=== PATIENT | female | born 1990 | race Caucasian/White ===

== ENCOUNTER 2019-10-07 22:04 | Emergency (ER) | payer SELFPAY ==
[~2019-10-07] VITALS: Ht 160 cm; Wt 50.8 kg
[2019-10-07] MEDS ORDERED: KETOROLAC 30 MG/1 ML IM ONE (23:00)
[2019-10-07 23:13] LABS: BASOPHILS % (AUTO) 0 % (0-1); EOSINOPHILS # (AUTO) 0.11 x10^3/uL (0-0.4); EOSINOPHILS % (AUTO) 1 % (1-7); LYMPHOCYTES # (AUTO) 1.28 x10^3/uL (1-3.4); LYMPHOCYTES % (AUTO) 14 % (22-44); MD NO; MEAN CORPUSCULAR HEMOGLOBIN 30.5 pg (27.0-34.8); MEAN CORPUSCULAR HGB CONC 33.2 g/dL (32.4-35.8); MEAN CORPUSCULAR VOLUME 91.9 fL (80-100); MONOCYTES # (AUTO) 0.05 x10^3/uL (0.2-0.8); MONOCYTES % (AUTO) 1 % (2-9); NEUTROPHILS # (AUTO) 7.62 x10^3/uL (1.8-6.8); NEUTROPHILS % (AUTO) 84 % (42-75); PLATELET COUNT 259 x10^3/uL (130-400); RED BLOOD COUNT 4.44 x10^6/uL (3.82-5.3); RED CELL DISTRIBUTION WIDTH 12.5 % (9.6-15.2)
[2019-10-07] MEDS ORDERED: KETOROLAC 30 MG/1 ML ONE (23:13)
[2019-10-07 23:16] LABS: ANION GAP 4 mmol/L (5-15); CALCIUM 8.9 mg/dL (8.5-10.1); CHLORIDE 114 mmol/L (98-107); CREATININE 0.77 mg/dL (0.55-1.02)
[2019-10-08 00:05] LABS: MICROSCOPIC INDICATED
[2019-10-08 00:26] LABS: CLUE CELLS NONE SEEN (NONE SEEN); WET PREP WBCS FEW (FEW)
[2019-10-08] MEDS ORDERED: CEFTRIAXONE 250 MG ONE (00:48)
[2019-10-08] MEDS ORDERED: AZITHROMYCIN 250 MG TABLET ONE (00:49)
[2019-10-08] MEDS ORDERED: CEFTRIAXONE 250 MG IM ONE (01:00)
[2019-10-08] MEDS ORDERED: AZITHROMYCIN 500 MG TABLET PO ONE (01:00)
[2019-10-08 01:06] VITALS: BP 112/68
== END 2019-10-08 01:39 | disposition home or self-care (01) ==
LOC: ED 10-08 01:25
DX: N30.00 Acute cystitis without hematuria (principal); N72 Inflammatory disease of cervix uteri; F17.210 Nicotine dependence, cigarettes, uncomplicated
CPT/HCPCS: 36415; 80048; 81001; 81025; 85025; 87077; 87086; 87186; 87210; 87491; 87591; 87808; 93005; 96372; 99284; 99406; J0696; J1885